=== PATIENT | male | born 1955 | race Caucasian/White ===

== ENCOUNTER → 2016-10-10 | Outpatient (CLI) | payer OTHER ==
[~2016-10-10] MED LIST: KEFLEX 500MG.500 MG PO; MEDROL 4MG. DOSE4 MG PO
--- NOTE | 2016-10-10 16:32 | RADIOLOGY REPORT PS360 ---
US THYROID HISTORY: THYROID NODULE COMPARISON: None FINDINGS: The patient was scheduled for a ultrasound-guided thyroid biopsy. There are no images available at this institution for comparison. Prebiopsy ultrasound performed. The right lobe measures 3.9 x 2.6 x 2 cm and contains a 6 mm cyst in the mid aspect. There is homogeneous echogenicity of the right lobe of the thyroid gland. The left lobe measures 4.4 x 3.3 x 3.2 cm. There is a solid nodule along the lower pole on the left which measures 2.4 x 2.2 cm. The area was prepped per routine technique. Due to the patient's body habitus and the deep location and inferior location of the nodule a safe biopsy route could not be established. I would suggest a nuclear medicine study of the thyroid gland. If this does prove to be a cold nodule then, more aggressive approach could be obtained. If the nodule is hyperactive then it is likely benign and can be watched. IMPRESSION: 1. 2.4 cm solid nodule along the lower pole the left lobe of the thyroid gland. Fine needle aspiration does carry some risk with the deep location and limited window. Suggest performing nuclear medicine study of the thyroid gland to determine if this nodule is hyperactive or hypoactive. If hypoactive then a more aggressive approach for biopsy can be planned. If hyperactive, then the nodule can be followed sonographically
== END ==
LOC: RAD 09:34
DX: E07.9 Disorder of thyroid, unspecified (principal)

== ENCOUNTER → 2017-06-10 | Outpatient (CLI) | payer OTHER ==
--- NOTE | 2017-06-10 18:03 | RADIOLOGY REPORT PS360 ---
US THYROID HISTORY: Follow-up thyroid nodules THYROID NODULE ORDERING PHYSICIAN: Santa Shah MD PATIENT AGE: 62 years COMPARISON: 10/10/2016 FINDINGS: Right lobe: 3.9 x 1.6 x 1.8 cm with homogeneous echogenicity. A 6 mm hypoechoic nodule cyst with the cyst noted. Left lobe: 3.7 x 2.9 x 3 cm. There is a 2.5 x 2.1 cm hypoechoic nodule in the mid polar region of the left lobe of the thyroid gland. This is not significantly changed. IMPRESSION: Overall no change 2.5 cm hypoechoic nodule lower pole on the left. Continued follow-up suggested. Consider nuclear thyroid exam for further characterization
== END ==
LOC: RAD 13:30
DX: E04.1 Nontoxic single thyroid nodule (principal)